=== PATIENT | male | born 1950 | race Caucasian/White ===

== ENCOUNTER 2022-10-02 21:12 | Inpatient (IN) | payer OTHER, MEDICAID ==
[~2022-10-02] VITALS: Ht 182.9 cm; Wt 111.6 kg
[2022-10-02 23:47] LABS: BASOPHILS % 0.6 % (0.0-2.0); HEMATOCRIT. 37.4 % (42.0-52.0); HEMOGLOBIN. 12.3 g/dL (14.0-18.0); LYMPHOCYTES % 15.8 % (20.0-50.0); MEAN CORPUSCULAR HEMOGLOBIN 29.7 pg (28.0-32.0); MEAN CORPUSCULAR VOLUME 90.5 fL (80.0-94.0); MEAN PLATELET VOLUME 7.1 fl (7.4-10.4); MONOCYTES % 4.6 % (2.0-8.0); PLATELET 463 x1000/uL (130-400); RED BLOOD CELL COUNT 4.13 mill/uL (4.7-6.1); RED CELL DISTRIBUTION WIDTH 15.6 % (11.6-14.6)
[2022-10-02 23:55] LABS: INR 1.2; PARTIAL THROMBOPLASTIN TIME 31.5 sec (23.4-31.0); PROTHROMBIN TIME 12.6 sec (9.6-11.0)
[2022-10-02 23:56] LABS: CHLORIDE 107 mEq/L (98-107)
[2022-10-03 00:13] LABS: ETHANOL BLOOD < 10 mg/dL
[2022-10-03] MEDS ORDERED: LACTULOSE 20G/30ML UDC PO NR (00:45)
[2022-10-03] MEDS ORDERED: WATER IV NR ×3 (01:30→06:30)
[2022-10-03] MEDS ORDERED: DEXT 5% IV NR ×2 (01:30→02:30)
[2022-10-03] MEDS ORDERED: ACETYLCYSTEINE IV NR ×3 (01:30→06:30)
[2022-10-03] MEDS ORDERED: DEXTROSE 5% IV NR (06:30)
[2022-10-03 15:33] LABS: CLARITY URINE CLOUDY (CLEAR); COLOR URINE YELLOW (YELLOW); KETONES URINE TRACE (NEGATIVE); LEUKOCYTE ESTERASE URINE 1+ (NEGATIVE); NITRITE URINE NEGATIVE (NEGATIVE); OCCULT BLOOD URINE NEGATIVE (NEGATIVE); PH URINE 5.5 (4.5-8.0); PROTEIN URINE 1+ (NEGATIVE); SPECIFIC GRAVITY URINE 1.025 (1.005-1.030); UROBILINOGEN URINE 0.2 E.U./dL (0.2-1.0)
[2022-10-03 15:53] LABS: *AMPHETAMINES SCREEN URINE NEGATIVE (NEGATIVE); *BARBITURATES SCREEN URINE NEGATIVE (NEGATIVE); *BENZODIAZEPINES SCREEN URINE NEGATIVE (NEGATIVE); *COCAINE SCREEN URINE NEGATIVE (NEGATIVE); CANNABINOID URINE SCREEN NEGATIVE (NEGATIVE); METHADONE URINE SCREEN NEGATIVE (NEGATIVE); OPIATES URINE SCREEN PRESUMTIVE POSITIVE (NEGATIVE); PHENCYCLIDINE URINE SCREEN NEGATIVE (NEGATIVE)
[2022-10-03 21:03] VITALS: BP 136/91
[2022-10-03 21:55] VITALS: BP 136/91
[2022-10-04] VITALS: BP 169/97
[2022-10-04] MEDS ORDERED: PNEUMOCOCCAL 23-VAL P-SAC VAC 0.5 ML IM ONE (00:30)
[2022-10-04] MEDS ORDERED: INFLUENZA VACCINE 05/PF 0.5 ML SYRINGE IM ONE (00:30)
[2022-10-04 03:52] LABS: BASOPHILS % 0.2 % (0.0-2.0); EOSINOPHILS % 3.2 % (0.0-5.0); HEMATOCRIT. 39.8 % (42.0-52.0); HEMOGLOBIN. 13.1 g/dL (14.0-18.0); LYMPHOCYTES % 21.3 % (20.0-50.0); MEAN CORPUSCULAR HEMOGLOBIN 30.2 pg (28.0-32.0); MEAN CORPUSCULAR VOLUME 91.8 fL (80.0-94.0); MEAN PLATELET VOLUME 7.2 fl (7.4-10.4); MONOCYTES % 6.2 % (2.0-8.0); NEUTROPHILS % 69.1 % (40.0-76.0); PLATELET 426 x1000/uL (130-400); RED BLOOD CELL COUNT 4.34 mill/uL (4.7-6.1); RED CELL DISTRIBUTION WIDTH 16.4 % (11.6-14.6)
[2022-10-04 04:00] VITALS: BP 134/82
[2022-10-04 07:33] VITALS: BP 176/110
[2022-10-04] MEDS ORDERED: HYDR25TA PO (08:53)
[2022-10-04] MEDS ORDERED: METO25TA6 PO (08:53)
[2022-10-04] MEDS ORDERED: CLONIDINE 0.1MG TABLET PO PRN (09:00)
[2022-10-04] MEDS ORDERED: ACETYLCYSTEINE 200MG/ML 20% VIAL 30ML (INJ) IV ONE (09:15)
[2022-10-04] MEDS: METOPROLOL TARTRATE 25MG TABLET PO SCH ×2 (09:44→21:42)
[2022-10-04] MEDS: SODIUM CHLORIDE 0.45% 1,000 ML IV SCH (11:23)
[2022-10-04 11:30] VITALS: BP 139/75
[2022-10-04] MEDS ORDERED: ACETYLCYSTEINE IV ONE (12:00)
[2022-10-04] MEDS ORDERED: DEXTROSE 5% IV ONE (12:00)
[2022-10-04] MEDS ORDERED: WATER IV ONE (12:00)
[2022-10-04 15:34] VITALS: BP 117/75
[2022-10-04] MEDS ORDERED: FLUOXETINE HCL 10 MG CAPSULE PO SCH (16:15)
[2022-10-04] MEDS: FLUOXETINE HCL 10 MG CAPSULE PO SCH (18:10)
[2022-10-04 20:00] VITALS: BP 131/71
[2022-10-05] VITALS: BP 125/47
[2022-10-05 04:00] VITALS: BP 147/75
[2022-10-05 04:54] LABS: CHLORIDE 107 mEq/L (98-107)
[2022-10-05 05:11] LABS: CREATINE KINASE 277 IU/L (39-308)
[2022-10-05] MEDS: SODIUM CHLORIDE 0.45% 1,000 ML IV SCH ×2 (05:18→09:48)
[2022-10-05 06:37] LABS: BASOPHILS % 0.7 % (0.0-2.0); EOSINOPHILS % 9.9 % (0.0-5.0); HEMATOCRIT. 32.7 % (42.0-52.0); HEMOGLOBIN. 11.1 g/dL (14.0-18.0); LYMPHOCYTES % 30.1 % (20.0-50.0); MEAN CORPUSCULAR HEMOGLOBIN 30.3 pg (28.0-32.0); MEAN CORPUSCULAR VOLUME 89.4 fL (80.0-94.0); MEAN PLATELET VOLUME 7.6 fl (7.4-10.4); NEUTROPHILS % 48.3 % (40.0-76.0); PLATELET 423 x1000/uL (130-400); RED BLOOD CELL COUNT 3.65 mill/uL (4.7-6.1); RED CELL DISTRIBUTION WIDTH 15.7 % (11.6-14.6)
[2022-10-05 08:00] VITALS: BP 141/84
[2022-10-05] MEDS: FLUOXETINE HCL 10 MG CAPSULE PO SCH (09:45)
[2022-10-05] MEDS: METOPROLOL TARTRATE 25MG TABLET PO SCH ×2 (09:46→20:58)
[2022-10-05] MEDS ORDERED: POTASSIUM CHLORIDE 20MEQ TABLET SR PO NR (10:45)
[2022-10-05 12:00] VITALS: BP 152/63
[2022-10-05] MEDS ORDERED: ASPI-1497 PO (12:07)
[2022-10-05] MEDS ORDERED: GABA-529 PO (12:07)
[2022-10-05] MEDS ORDERED: POTA-205 PO (12:07)
[2022-10-05] MEDS ORDERED: ONDA8TAB59 PO (12:07)
[2022-10-05] MEDS ORDERED: BUSP10TA3 PO (12:07)
[2022-10-05] MEDS ORDERED: TAMS-11 PO (12:07)
[2022-10-05] MEDS ORDERED: NALOXONE HCL 0.4MG/ML VIAL IV PRN (12:45)
[2022-10-05] MEDS: TRAMADOL 50MG TABLET PO PRN (12:49)
[2022-10-05 16:00] VITALS: BP 128/55
[2022-10-05 20:00] VITALS: BP 139/70
[2022-10-06] VITALS: BP 144/71
[2022-10-06 04:00] VITALS: BP 132/71
[2022-10-06 08:00] VITALS: BP 129/64
[2022-10-06] MEDS: FLUOXETINE HCL 10 MG CAPSULE PO SCH (09:40)
[2022-10-06] MEDS: METOPROLOL TARTRATE 25MG TABLET PO SCH ×2 (09:40→20:51)
[2022-10-06] MEDS: TRAMADOL 50MG TABLET PO PRN (09:42)
[2022-10-06 12:17] VITALS: BP 138/71
[2022-10-06 16:00] VITALS: BP 116/65
[2022-10-06 20:00] VITALS: BP 133/80
[2022-10-06] MEDS: SODIUM CHLORIDE 0.45% 1,000 ML IV SCH (20:52)
[2022-10-07] VITALS: BP 148/89
[2022-10-07 04:00] VITALS: BP 138/88
[2022-10-07 08:30] VITALS: BP 148/72
[2022-10-07] MEDS: FLUOXETINE HCL 10 MG CAPSULE PO SCH (09:05)
[2022-10-07] MEDS: METOPROLOL TARTRATE 25MG TABLET PO SCH (09:05)
[2022-10-07 12:00] VITALS: BP 148/74
[2022-10-07 15:27] VITALS: BP 148/74
[2022-10-07 16:00] VITALS: BP 138/84
[2022-10-07 18:24] LABS: CHLORIDE 109 mEq/L (98-107)
== END 2022-10-07 17:46 | DRG 917 ==
LOC: ER 21:12 → 6WST 10-03 02:09 → ER 10-03 20:40
PROVIDERS: ADMIT Internal Medicine; ATTEND Internal Medicine
DX: T39.1X1A Poisoning by 4-Aminophenol derivatives, accidental (unintentional), initial encounter (principal); E43 Unspecified severe protein-calorie malnutrition; N17.0 Acute kidney failure with tubular necrosis; E66.9 Obesity, unspecified; I10 Essential (primary) hypertension; E78.00 Pure hypercholesterolemia, unspecified; F32.A Depression, unspecified; E78.5 Hyperlipidemia, unspecified; D72.829 Elevated white blood cell count, unspecified; R74.01 Elevation of levels of liver transaminase levels; G89.29 Other chronic pain; Z20.822 Contact with and (suspected) exposure to COVID-19; Z68.33 Body mass index [BMI] 33.0-33.9, adult; Y92.89 Other specified places as the place of occurrence of the external cause
CPT/HCPCS: 36415; 71045; 76700; 80048; 80053; 80076; 80305; 80307; 80320; 80329; 81003; 82140; 82248; 82550; 83036; 83880; 84443; 84450; 84460; 84484; 85025; 87426; 90686; 93005; 99291; J0132; J7060; J7070; G0480